=== PATIENT | male | born 1950 | race Caucasian/White ===

== ENCOUNTER 2022-01-02 13:40 | Observation (INO) | payer MEDICARE, OTHER ==
[2022-01-02] MEDS ORDERED: Acetaminophen 325 MG TAB PO PRN (16:29)
[2022-01-02] MEDS ORDERED: Piperacillin/Tazobactam 3.375 GM in Sodium Chloride 0.9% 100 ML IVPB SCH ×3 (18:00→23:59)
[2022-01-02] MEDS: Vancomycin 1 GM in Premix Bag 1 BAG IVPB SCH (20:20)
[2022-01-02 20:48] LABS: SARS-CoV-2 PCR by NAA Not Detected (NotDetected)
[2022-01-03] MEDS: Piperacillin/Tazobactam 3.375 GM in Sodium Chloride 0.9% 100 ML IVPB SCH ×3 (02:43→18:06)
[2022-01-03] MEDS: Levothyroxine Sodium 100 MCG TAB PO SCH (06:07)
[2022-01-03 06:32] LABS: #Eosinphils 0.2 thou/uL (0.0-0.7); #Lymphocytes 2.3 thou/uL (1.20-3.40); #Monocytes 0.6 thou/uL (0.11-0.59); #Neutrophils 3.6 thou/uL (1.40-6.50); %Basophils 0.6 % (0.0-1.0); %Eosinophils 2.6 % (0.0-10.0); %Lymphocytes 34.1 % (21.0-51.0); %Monocytes 8.7 % (0.0-10.0); %Neutrophils 53.9 % (42.0-75.0); Hemoglobin 13.6 g/dL (14.0-18.0); Mean Corpuscular HGB CONC 33.5 g/dL (32.0-36.0); Mean Corpuscular Hemoglobin 31.3 pg (27.0-31.0); Mean Corpuscular Volume 93.3 fL (78.0-98.0); Mean Platelet Volume 7.9 fL (7.4-10.4); Platelet Count 193 thou/uL (130-400); RBC Distribution Width 11.9 % (11.5-14.5); Red Blood Cell (RBC) Count 4.36 mill/uL (4.70-6.10); White Blood Cell (WBC) Count 6.7 thou/uL (4.8-10.8)
[2022-01-03] MEDS: Vancomycin 1 GM in Premix Bag 1 BAG IVPB SCH ×2 (08:54→22:07)
[2022-01-03 21:24] LABS: Vancomycin, Trough 13.3 ug/mL
[2022-01-04] MEDS ORDERED: diphenhydrAMINE 50 MG/ML VIAL IVP SCH (02:45)
[2022-01-04] MEDS ORDERED: diphenhydrAMINE 50 MG/ML VIAL ONE (03:14)
[2022-01-04] MEDS: Piperacillin/Tazobactam 3.375 GM in Sodium Chloride 0.9% 100 ML IVPB SCH ×2 (03:50→10:42)
[2022-01-04] MEDS: Levothyroxine Sodium 100 MCG TAB PO SCH (05:35)
[2022-01-04 09:16] VITALS: BP 121/73
[2022-01-04] MEDS: Vancomycin 1 GM in Premix Bag 1 BAG IVPB SCH (09:16)
[2022-01-04 09:20] VITALS: TEMP 98.2
== END 2022-01-04 14:51 | disposition home or self-care (01) ==
LOC: T4-B 14:02
PROVIDERS: ADMIT Internal Medicine; ATTEND Internal Medicine
DX: S81.812A Laceration without foreign body, left lower leg, initial encounter (principal); L03.116 Cellulitis of left lower limb; E03.9 Hypothyroidism, unspecified; Z66 Do not resuscitate; Z79.899 Other long term (current) drug therapy; Z20.822 Contact with and (suspected) exposure to COVID-19; W29.3XXA Contact with powered garden and outdoor hand tools and machinery, initial encounter; Y99.0 Civilian activity done for income or pay
CPT/HCPCS: 73721; 80202; 82565; 85025; U0003; U0005; 36415; J1200; J2543; J3370; J3490